=== PATIENT | female | born 1945 | race Caucasian/White ===

== ENCOUNTER 2017-11-01 15:55 | Observation (INO) | payer MEDICARE, OTHER ==
[~2017-11-01] VITALS: Ht 160 cm; Wt 81.2 kg
[2017-11-01 16:31] LABS: BILIRUBIN,URINE NEGATIVE (NEGATIVE); KETONES,URINE 1+ (NEGATIVE); LEUKOCYTE ESTERASE ,URINE 2+ (NEGATIVE); NITRITE,URINE NEGATIVE (NEGATIVE); URINE UROBILINOGEN 4 mg/dL (0.2 - 1)
[2017-11-01 16:32] LABS: CLARITY,URINE HAZY (CLEAR); COLOR,URINE YELLOW (YELLOW); PROTEIN,URINE DIPSTICK 1+ (NEGATIVE)
[2017-11-01 16:43] LABS: BACTERIA,URINE FEW /HPF; EPITHELIAL CELLS,URINE FEW /LPF; RBC,URINE 0-5 /HPF (0-5)
--- NOTE | 2017-11-01 17:05 | Diagnostic Imaging Report ---
EXAMINATION: Chest, CHEST SINGLE (NOT PORTABLE) INDICATION: Chest pain COMPARISON: None FINDINGS: LINES: None. Heart: Normal cardiac silhouette. Vascular: The pulmonary vasculature is within normal limits. Atherosclerotic calcifications of the aortic arch. Mediastinum: No mediastinal, hilar, or axillary mass or lymphadenopathy. Lungs: No parenchymal mass. No focal consolidation. Pleura: No pleural effusion. No pneumothorax. Bones: No acute osseous abnormality. Degenerative changes of the thoracic spine. Postoperative changes of the right shoulder. Soft tissues: Normal. Impression: No acute radiographic abnormality. Signed by: Dr. Liam Dominguez M.D. on 11/01/2017 5:01 PM
[2017-11-01] MEDS ORDERED: CEFTRIAXONE SOD 1 GM VIAL IV ONE (18:00)
[2017-11-01] MEDS ORDERED: SODIUM CHLORIDE 0.9% 50ML 50 ML ONE (19:28)
[2017-11-01 20:08] LABS: BASOPHILS # (AUTO) 0.1 (0.0-0.1); BASOPHILS % 0.6 % (0.0-1.0); EOSINOPHILS # (AUTO) 0.3 (0.0-0.4); EOSINOPHILS % 2.2 % (0.0-6.0); HEMATOCRIT 40.3 % (34.2-44.1); HEMOGLOBIN 13.3 g/dL (12.0-16.0); LYMPHOCYTES # (AUTO) 2.5 (1.0-3.2); LYMPHOCYTES % 22.8 % (18.0-39.1); MEAN CORPUSCULAR HEMOGLOBIN 30.4 pg (28-32); MONOCYTES % 8.8 % (4.4-11.3); NEUTROPHILS # (AUTO) 7.3 (2.1-6.9); NEUTROPHILS % 65.3 % (38.7-80.0); PLATELET COUNT 236 x10e3/uL (140-360); RED BLOOD COUNT 4.38 x10e6/uL (3.6-5.1); RED CELL DISTRIBUTION WIDTH 12.6 % (11.7-14.4)
[2017-11-01 20:16] LABS: INR 0.9; PROTHROMBIN TIME 12.6 seconds (11.9-14.5)
[2017-11-01 20:17] LABS: PARTIAL THROMBOPLASTIN TIME 28.1 seconds (23.8-35.5)
[2017-11-01 20:26] LABS: ALANINE AMINOTRANSFERASE 12 IU/L (0-55); ALBUMIN 3.6 g/dL (3.5-5.0); ALBUMIN/GLOBULIN RATIO 0.8 (0.8-2.0); ALKALINE PHOSPHATASE 86 IU/L (40-150); ANION GAP 12.8 mmol/L (8-16); BLOOD UREA NITROGEN 17 mg/dL (7-26); BUN/CREATININE RATIO 25 (6-25); CALCIUM 9.4 mg/dL (8.4-10.2); CARBON DIOXIDE 26 mmol/L (22-29); CHLORIDE 105 mmol/L (98-107); CREATINE KINASE 90 IU/L (29-168); CREATININE, SERUM 0.69 mg/dL (0.57-1.11); EST GLOMERULAR FILTRATION RATE > 60 ML/MIN (60-); GLUCOSE 148 mg/dL (74-118); POTASSIUM 3.8 mmol/L (3.5-5.1); SODIUM 140 mmol/L (136-145)
[2017-11-02] VITALS (7 sets, daily range): BP systolic 116–147; BP diastolic 57–67
[2017-11-02] MEDS ORDERED: ENOXAPARIN SODIUM INJ 100 MG/ML SYR SC STA (00:20)
[2017-11-02] MEDS ORDERED: NITROGLYCERIN 0.4 MG SUBL SL PRN (00:45)
[2017-11-02] MEDS ORDERED: ONDANSETRON HCL INJ 2 MG/ML VIAL IV PRN (00:45)
[2017-11-02] MEDS ORDERED: MORPHINE SULFATE 2 MG/ML SYR IV PRN (00:45)
[2017-11-02] MEDS ORDERED: DEXTROSE 50% SYRINGE 50 ML IV PRN (01:00)
[2017-11-02] MEDS: FAMOTIDINE 20 MG/2 ML VIAL IV SCH ×2 (05:23→17:46)
[2017-11-02] MEDS ORDERED: CEFTRIAXONE SOD 1 GM VIAL IV SCH (06:30)
[2017-11-02] MEDS: ASPIRIN 81 MG ENTERIC COATED PO SCH (09:14)
[2017-11-02] MEDS: LISINOPRIL 10 MG TAB PO SCH (09:14)
[2017-11-02] MEDS: INSULIN REGULAR, HUMAN 100 UNIT/1 ML 3ML VIAL SQ SCH ×4 (09:15→20:50)
--- NOTE | 2017-11-02 09:41 | Consultation ---
DATE OF CONSULTATION: November 02, 2017 CARDIOLOGY CONSULTATION REQUESTING PHYSICIAN: Dr. Velazquez. REASON FOR CONSULTATION: Chest pain. HISTORY OF PRESENT ILLNESS: This is a 72-year-old female that presented with chest pain. According to the patient, for the last 2 years she had been having chest pain off and on but it got worse for the last 2 to 3 days, that she decided to come into the emergency room for evaluation. She described the chest pain as an intermittent pressure that starts on the left side of the chest and sometimes radiates to the right side of the chest and goes to her left arm on a scale of 5 out of 10. She stated that the chest pain gets worse with exertion, accompanied with shortness of breath. She stated she was having a conversation with somebody yesterday. She felt like she was out of breath, and that's why she came into the ER for evaluation. She has a history of hypothyroidism but was taken off medication because her thyroid was back to normal. She also has a history of high blood pressure, diabetes, hyperlipidemia and carotid stenosis. She denies any palpitation, any dizziness, any diaphoresis or headache. Troponin x1 negative. EKG showed normal sinus rhythm with no ST abnormalities. BNP was 57. PAST MEDICAL HISTORY: Hypertension, diabetes, hyperlipidemia, left carotid stenosis, and hypothyroidism. PAST SURGICAL HISTORY: Left carotid endarterectomy, hysterectomy, hernia repair, and tubal ligation. FAMILY HISTORY: Positive for diabetes. SOCIAL HISTORY: No smoking, no drinking. She lives at home with family. MEDICATIONS: See med list. ALLERGIES: SHE IS NOT ALLERGIC TO ANY MEDICATION. REVIEW OF SYSTEMS: Negative except those mentioned above. She is positive with chest pain. PHYSICAL EXAMINATION VITAL SIGNS: Temperature 98, heart rate 82, blood pressure 150/70, respiration 18, oxygen saturation 95% on room air. GENERAL: She is awake, alert, and oriented x3. HEENT: Mucous membrane moist. NECK: Supple. LUNGS: Bilaterally clear to auscultation. CARDIOVASCULAR: S1/S2 present. ABDOMEN: Soft. NEUROLOGICAL: Intact. EXTREMITIES: With no edema. LABS: Sodium 140, potassium 3.8, chloride 105, CO2 26, BUN 17, creatinine 0.69, glucose 148. White blood cell 11.1, hemoglobin 13.3, hematocrit 40.3, platelet 236. PT 12.6, PTT 28.1, INR 0.98. IMPRESSION 1. Chest pain. 2. Diabetes. 3. Hypertension. 4. Hyperlipidemia. 5. History of left carotid stenosis. ASSESSMENT/PLAN: Will go ahead and get a serial cardiac enzyme. Due to her comorbidities, diabetes, high blood pressure and her symptoms, will go ahead and schedule her for [employer]. Will put her n.p.o. at midnight. Get an echocardiogram to assess the LV and the valve function. Resume her home medications. Will continue aspirin, statin and nitrates. Further cardiac workup pending clinical course. Thank you for this consultation. Dictated by: Stef Paz NP Job#: [id number]
[2017-11-02 09:43] LABS: BASOPHILS # (AUTO) 0.1 (0.0-0.1); BASOPHILS % 0.9 % (0.0-1.0); EOSINOPHILS # (AUTO) 0.2 (0.0-0.4); EOSINOPHILS % 2.5 % (0.0-6.0); HEMATOCRIT 36.1 % (34.2-44.1); LYMPHOCYTES # (AUTO) 2.2 (1.0-3.2); LYMPHOCYTES % 29.9 % (18.0-39.1); MEAN CORPUSCULAR HEMOGLOBIN 30.8 pg (28-32); MEAN CORPUSCULAR HGB CONC 33.2 g/dL (31-35); MEAN CORPUSCULAR VOLUME 92.8 fL (81-99); MONOCYTES # (AUTO) 0.9 (0.2-0.8); MONOCYTES % 11.9 % (4.4-11.3); NEUTROPHILS # (AUTO) 4.1 (2.1-6.9); NEUTROPHILS % 54.5 % (38.7-80.0); PLATELET COUNT 208 x10e3/uL (140-360); RED BLOOD COUNT 3.89 x10e6/uL (3.6-5.1); RED CELL DISTRIBUTION WIDTH 12.6 % (11.7-14.4)
[2017-11-02 09:59] LABS: ALANINE AMINOTRANSFERASE 10 IU/L (0-55); ALBUMIN 3.1 g/dL (3.5-5.0); ALBUMIN/GLOBULIN RATIO 0.8 (0.8-2.0); ALKALINE PHOSPHATASE 82 IU/L (40-150); ANION GAP 10.9 mmol/L (8-16); BLOOD UREA NITROGEN 12 mg/dL (7-26); BUN/CREATININE RATIO 17 (6-25); CALCIUM 8.8 mg/dL (8.4-10.2); CARBON DIOXIDE 27 mmol/L (22-29); CHLORIDE 106 mmol/L (98-107); CREATININE, SERUM 0.69 mg/dL (0.57-1.11); EST GLOMERULAR FILTRATION RATE > 60 ML/MIN (60-); GLUCOSE 273 mg/dL (74-118); MAGNESIUM 1.7 MG/DL (1.3-2.1); POTASSIUM 3.9 mmol/L (3.5-5.1); SODIUM 140 mmol/L (136-145)
[2017-11-02 10:22] LABS: CREATINE KINASE 78 IU/L (29-168)
[2017-11-02] MEDS ORDERED: SODIUM CHLORIDE 0.9% 1000ML 1,000 ML IV SCH (15:30)
[2017-11-02 17:40] LABS: CREATINE KINASE MB 1.2 ng/mL (0.00-5.00)
[2017-11-02] MEDS ORDERED: CEFTRIAXONE SOD 1 GM/NS 50 ML 50 ML IV SCH (18:00)
[2017-11-02] MEDS ORDERED: ATORVASTATIN 20 MG TAB PO SCH (21:00)
[2017-11-03] VITALS: BP 132/64
[2017-11-03 00:34] VITALS: BP 132/64
[2017-11-03 04:00] VITALS: BP 133/61
[2017-11-03] MEDS: FAMOTIDINE 20 MG/2 ML VIAL IV SCH (05:16)
[2017-11-03] MEDS: INSULIN REGULAR, HUMAN 100 UNIT/1 ML 3ML VIAL SQ SCH ×2 (07:30→11:30)
[2017-11-03 07:35] LABS: CHOL/HDL RATIO 4.8 (3.0-3.6)
[2017-11-03 08:29] VITALS: BP 163/74
[2017-11-03] MEDS: ASPIRIN 81 MG ENTERIC COATED PO SCH (08:36)
[2017-11-03] MEDS: LISINOPRIL 10 MG TAB PO SCH (08:37)
[2017-11-03] MEDS ORDERED: REGADENOSON 0.4 MG/5 ML SYR IV ONE (08:49)
[2017-11-03 09:35] VITALS: BP 163/74
[2017-11-03 12:48] VITALS: BP 126/63
--- NOTE | 2017-11-03 13:10 | Cardiology Report ---
DATE OF STUDY: November 03, 2017 LEXISCAN NUCLEAR STRESS TEST INDICATIONS: Chest pain. DESCRIPTION OF PROCEDURE: After informed consent, the patient was brought to the stress lab. She was given 11 millicuries of technetium 99 Myoview intravenously, and myocardial perfusion SPECT images were obtained in horizontal long and short axis and vertical long axis. Subsequently, the patient was given 0.4 mg of Lexiscan intravenously. The patient was given 32.6 millicuries of technetium 99 Myoview intravenously, and myocardial perfusion SPECT images were obtained in horizontal long axis and short axis and vertical long axis. Gated images were also obtained. Patient tolerated the procedure without any complications. REPORT: Baseline EKG shows sinus rhythm at 69 beats per minute, normal axis, normal intervals, no acute ST-T changes. PARAMETERS 1. Resting heart rate is 70 beats per minute. 2. Maximum heart rate is 97 beats per minute. 3. Resting blood pressure 156/71 mmHg. 4. Maximum blood pressure 156/71 mmHg. REASON FOR TERMINATION: Endpoint attained. INTERPRETATION 1. Negative chest pain. 2. Negative for arrhythmias. 3. Blood pressure response consistent with Lexiscan. 4. No significant ST-T changes seen during Lexiscan infusion compared to baseline. 5. Analysis of SPECT images reveals uniform radioisotope uptake in all segments of the myocardium without any significant perfusion defects. CONCLUSIONS 1. No evidence of significant ischemia or infarction on this study. 2. No wall motion abnormality. 3. Overall ejection fraction 71%. Job#: [id number]
[2017-11-03] MEDS ORDERED: CEFTRIAXONE SOD 1 GM VIAL IV SCH (18:00)
== END 2017-11-03 14:25 | disposition home or self-care (01) ==
LOC: ER 15:55 → ERHOLD 11-02 00:37 → INTOOBSV 11-02 00:37 → MED/SURG 11-02 00:53
PROVIDERS: ADMIT Internal Medicine; ATTEND Internal Medicine
DX: R07.9 Chest pain, unspecified (principal); I10 Essential (primary) hypertension; E78.5 Hyperlipidemia, unspecified; E11.9 Type 2 diabetes mellitus without complications; I34.0 Nonrheumatic mitral (valve) insufficiency; I07.1 Rheumatic tricuspid insufficiency; N39.0 Urinary tract infection, site not specified
CPT/HCPCS: 36415 ×3; 71045; 78452; 80053 ×2; 80061; 81001; 82550 ×2; 82553 ×2; 82948 ×2; 83735; 83880; 84484 ×2; 85025 ×2; 85610; 85730; 87086; 87400; 93005; 93017; 93306 ×2; 93880; 99284; A9502; G0378 ×2; J0696 ×3; J1650; J7030